=== PATIENT | female | born 1995 | race American Indian/Alaskan Native ===

== ENCOUNTER 2020-11-11 10:26 | Emergency (ER) | payer SELFPAY ==
[2020-11-11 12:08] LABS: Hematocrit 42.5 % (30.3-42.9); Hemoglobin 14.2 gm/dl (10.1-14.3); Mean Corpuscular HGB Conc 34 % (30-34); Mean Corpuscular Volume 80 fl (79-97); Red Blood Count 5.29 M/mm3 (3.65-5.03); Red Cell Distribution Width 14.6 % (13.2-15.2)
--- NOTE | 2020-11-11 12:11 | Emergency Department Report ---
ED General Adult HPI - General Chief complaint: Dyspnea/Respdistress Stated complaint: COUGH Time Seen by Provider: 11/11/20 11:33 Source: patient Mode of arrival: Ambulatory Limitations: No Limitations - History of Present Illness Initial comments: 25-year-old -[place] Citizen female patient presents with complaints of cough and abdominal pain x2 days. She rates her abdominal pain as 5/10 in severity and denies any fever/chills/sweats, nausea/vomiting/diarrhea, urinary symptoms/vaginal discharge/dyspareunia, or melena/hematochezia. No history of abdominal surgeries per patient. Pain is in her mid/upper abdomen. Pain does not radiate into the chest. No chest pain/shortness of breath per patient or productive cough/hemoptysis. She also denies any recent long travel, leg pain/swelling, history of DVT/PE, or history of cancer. Patient does have Implanon left arm, however she states this has been for more than 1 year. - Related Data Previous Rx's Medication Instructions Recorded Last Taken Type Albuterol Mdi (or & Nicu Only) 2 puff IH QID PRN #8.5 gram 11/11/20 Unknown Rx [ProAir HFA Inhaler] Amoxicillin [Trimox CAP] 1,000 mg PO Q8H 7 Days #42 capsule 11/11/20 Unknown Rx Azithromycin [Zithromax Z-GUMARO] 0 mg PO DAILY #6 tab 11/11/20 Unknown Rx predniSONE [Deltasone] 20 mg PO BID 3 Days #6 tab 11/11/20 Unknown Rx Allergies Allergy/AdvReac Type Severity Reaction Status Date / Time No Known Allergies Allergy Unverified 11/11/20 11:14 ED Review of Systems ROS: Stated complaint: COUGH Other details as noted in HPI Constitutional: denies: chills, diaphoresis, fever, malaise, weakness, other (No loss of taste or smell) ENT: denies: throat pain Respiratory: cough. denies: shortness of breath Cardiovascular: denies: chest pain Gastrointestinal: abdominal pain. denies: nausea, vomiting, diarrhea, constipation, hematemesis, melena, hematochezia Genitourinary: denies: urgency, dysuria, frequency, hematuria Musculoskeletal: denies: back pain Skin: denies: change in color Neurological: denies: headache Hematological/Lymphatic: denies: swollen glands ED Past Medical Hx - Past Medical History Previous Medical History?: Yes Hx Asthma: Yes - Surgical History Past Surgical History?: No - Medications Home Medications: Home Medications Medication Instructions Recorded Confirmed Last Taken Type Albuterol Mdi (or & Nicu Only) 2 puff IH QID PRN #8.5 gram 11/11/20 Unknown Rx [ProAir HFA Inhaler] Amoxicillin [Trimox CAP] 1,000 mg PO Q8H 7 Days #42 capsule 11/11/20 Unknown Rx Azithromycin [Zithromax Z-GUMARO] 0 mg PO DAILY #6 tab 11/11/20 Unknown Rx predniSONE [Deltasone] 20 mg PO BID 3 Days #6 tab 11/11/20 Unknown Rx ED Physical Exam - General Limitations: No Limitations General appearance: alert, in no apparent distress, obese - Head Head exam: Present: atraumatic, normocephalic - Eye Eye exam: Present: normal appearance. Absent: scleral icterus - Neck Neck exam: Present: normal inspection - Respiratory Respiratory exam: Present: wheezes (Right middle lung), rhonchi (Right middle lung lobe). Absent: respiratory distress - Cardiovascular Cardiovascular Exam: Present: regular rate, normal rhythm. Absent: systolic murmur, diastolic murmur, rubs, gallop - GI/Abdominal GI/Abdominal exam: Present: soft, tenderness (Mild mid epigastric pain to palpation noted), normal bowel sounds. Absent: distended, guarding, rebound, rigid - Extremities Exam Extremities exam: Present: full ROM. Absent: calf tenderness (No pain or swelling noted to legs bilaterally) - Back Exam Back exam: Present: full ROM - Neurological Exam Neurological exam: Present: alert, oriented X3 - Psychiatric Psychiatric exam: Present: normal affect, normal mood - Skin Skin exam: Present: warm, dry, intact, normal color. Absent: rash ED Course Vital Signs 11/11/20 11/11/20 11:15 13:53 Temperature 98.4 F 99.2 F Pulse Rate 101 H 93 H Respiratory 18 20 Rate Blood Pressure 116/74 Blood Pressure 124/75 [Right] O2 Sat by Pulse 95 96 Oximetry ED Medical Decision Making - Lab Data Result diagrams: 11/11/20 11:48 11/11/20 11:48 - Radiology Data Radiology results: report reviewed CHEST PA AND LATERAL VIEWS INDICATION: cough, RML abnormal breath sounds. COMPARISON: None. FINDINGS: Support devices: None. Heart: Within normal limits. Lungs/Pleura: There are mild patchy opacities in the mid to lower lungs bilaterally. No pleural abnormality. IMPRESSION: 1. Patchy bibasilar opacities could be due to at least artifact from patient body habitus. However, bibasilar pneumonia could have this appearance. - Medical Decision Making 25-year-old -[place] Citizen female patient presents with complaints of cough and abdominal pain x2 days. She rates her abdominal pain as 5/10 in severity and denies any fever/chills/sweats, nausea/vomiting/diarrhea, urinary symptoms/vaginal discharge/dyspareunia, or melena/hematochezia. No history of abdominal surgeries per patient. Pain is in her mid/upper abdomen. Pain does not radiate into the chest. No chest pain per patient or productive cough/hemoptysis. She also denies any recent long travel, leg pain/swelling, history of DVT/PE, or history of cancer. Patient does have Implanon left arm, however she states this has been for more than 1 year. X-ray shows the following: Patchy bibasilar opacities could be due to at least artifact from patient body habitus. However, bibasilar pneumonia could have this appearance. Cannot rule out COVID-19 infection. Pulse ox is normal on room air and patient denies shortness of breath. Will treat for pneumonia with azithromycin and Augmentin. Recommend outpt covid testing and self quarantine. Patient to follow-up with PCP within 3 days. Discussed in great detail signs and symptoms that should prompt immediate return to emergency department with patient who verbalizes understanding. Also discussed diagnosis and plan of care in detail patient denies any further questions at this time. Critical care attestation.: If time is entered above; I have spent that time in minutes in the direct care of this critically ill patient, excluding procedure time. ED Disposition Clinical Impression: Bilateral pneumonia, Suspected 2019 novel coronavirus infection Disposition: HOME / SELF CARE / HOMELESS Is pt being admited?: No Condition: Stable Instructions: Community-Acquired Pneumonia, Adult, Prevent the Spread of COVID- 19 if You Are Sick - CDC, Bacterial Pneumonia (ED) Prescriptions: predniSONE [Deltasone] 20 mg PO BID 3 Days #6 tab Albuterol Mdi (or & Nicu Only) [ProAir HFA Inhaler] 2 puff IH QID PRN #8.5 gram PRN Reason: Shortness Of Breath Amoxicillin [Trimox CAP] 1,000 mg PO Q8H 7 Days #42 capsule Azithromycin [Zithromax Z-GUMARO] 0 mg PO DAILY #6 tab Referrals: [facility] [Provider Group] - 3-5 Days Forms: Work/School Release Form(ED)
[2020-11-11 12:28] LABS: Alanine Aminotransferase 12 units/L (7-56); Albumin 4.1 g/dL (3.9-5); Blood Urea Nitrogen 7 mg/dL (7-17); Calcium 9.3 mg/dL (8.4-10.2); Hemolysis Index 13
--- NOTE | 2020-11-11 12:37 | XRay Report ---
CHEST PA AND LATERAL VIEWS INDICATION: cough, RML abnormal breath sounds. COMPARISON: None. FINDINGS: Support devices: None. Heart: Within normal limits. Lungs/Pleura: There are mild patchy opacities in the mid to lower lungs bilaterally. No pleural abnor mality. IMPRESSION: 1. Patchy bibasilar opacities could be due to at least artifact from patient body habitus. However, b ibasilar pneumonia could have this appearance. Signer Name: Gerry Plasencia MD Signed: 11/11/2020 12:32 PM Workstation Name: [id number]
[2020-11-11 12:40] LABS: BUN/Creatinine Ratio 12
[2020-11-11 13:03] LABS: Band Neutrophils # (Manual) 0.1 K/mm3; Platelet Estimate Consistent w Auto; RBC Morphology Normal; Total Cells Counted 100
[2020-11-11 13:04] LABS: Platelet Count 189 K/mm3 (140-440)
[2020-11-11 13:06] LABS: Bacteria,Urine 1+ /HPF (Negative); Bilirubin,Urine NEG (Negative); Blood,Urine SM (Negative); Color,Urine Amber (Yellow); Mucus,Urine 2+ /HPF
[2020-11-11 13:54] VITALS: BP 116/74
== END 2020-11-11 13:54 | disposition home or self-care (01) ==
LOC: ED 10:26
DX: J18.9 Pneumonia, unspecified organism (principal); Z20.822 Contact with and (suspected) exposure to COVID-19; J45.909 Unspecified asthma, uncomplicated; Z98.890 Other specified postprocedural states
CPT/HCPCS: 36415; 71046; 80053; 81001; 83690; 84703; 85007; 85025; 99283